=== PATIENT | female | born 1980 | race Caucasian/White ===

== ENCOUNTER 2016-09-11 12:07 | Inpatient (IN) | payer OTHER ==
[2016-09-11 12:55] VITALS: BMI 29.9
[2016-09-11 13:16] LABS: SPECIFIC GRAVITY 1.015 (1.001-1.030); URINE BILIRUBIN NEGATIVE (NEGATIVE); URINE BLOOD 2+ (NEGATIVE); URINE GLUCOSE (UA) NEGATIVE (NEGATIVE); URINE LEUKOCYTE ESTERASE 1+ (NEGATIVE); URINE NITRITE NEGATIVE (NEGATIVE); URINE PROTEIN TRACE (NEGATIVE); URINE UROBILINOGEN NORMAL (0-1 mg/dl)
[2016-09-11 13:17] LABS: URINE APPEARANCE HAZY; URINE COLOR YELLOW
[2016-09-11 13:45] LABS: URINE AMORPHOUS SEDIMENT FEW; URINE BACTERIA FEW
[2016-09-11] MEDS ORDERED: FENTANYL 100 MCG/2 ML VIAL IV PRN (14:13)
[2016-09-11] MEDS ORDERED: IV START KIT ONE (14:16)
[2016-09-11] MEDS ORDERED: LACTATED RINGERS 1,000 ML ONE (14:16)
[2016-09-11] MEDS: LACTATED RINGERS 1,000 ML IV SCH ×4 (14:42→21:24)
[2016-09-11] MEDS ORDERED: ONDANSETRON 4 MG/2ML 2 ML VIAL IV PRN ×2 (14:59→21:05)
[2016-09-11] MEDS: FENTANYL 100 MCG/2 ML VIAL IV PRN ×2 (15:07→17:48)
[2016-09-11 15:10] LABS: ABSOLUTE NEUTROPHIL COUNT 5.9 K/mm3 (1.8-7.7); BASO % 0.1 % (0.2-1.0); EOS % 0.4 % (0.9-2.9); HEMATOCRIT 26.3 % (37.0-47.0); HEMOGLOBIN 8.4 gm/l (12.0-16.0); IMM NEUT # 0.1 K/mm3 (0-0.2); IMM NEUT% 0.9 % (0-1); LYMPH # 1.5 (1.0-4.8); LYMPH % 18.4 % (15-45); MEAN CELL VOLUME 88.9 fl (81.0-99.0); MEAN CORPUSCULAR HEMOGLOBIN 28.4 pg (27.0-31.0); MEAN CORPUSCULAR HGB CONC 31.9 g/dl (33.0-37.0); MEAN PLATELET VOLUME 10.2 fl (7.4-10.4); MONO # 0.5 (0.0-0.8); MONO % 6.5 % (4-12); NEUT % 73.7 % (43-75); PLATELET COUNT 200 K/mm3 (130-400); RED CELL DISTRIBUTION WIDTH 12.9 % (11.5-14.5)
[2016-09-11] MEDS ORDERED: MORPHINE SULFATE 4 MG/ML SYRINGE IV ONE (15:45)
[2016-09-11] MEDS ORDERED: CALCIUM CARBONATE 750 MG TAB.CHEW PO PRN (16:49)
[2016-09-11] MEDS ORDERED: ACETAMINOPHEN 500 MG TABLET PO PRN (16:49)
[2016-09-11] MEDS ORDERED: TAMSULOSIN HCL 0.4 MG CAPSULE.DR PO ONE (17:00)
--- NOTE | 2016-09-11 17:55 | US ---
RENAL ULTRASOUND HISTORY: Increased left flank pain. Left renal calculus. 37 weeks . Sonography was performed of the kidneys and bladder. Evaluation limited due to gravid status. Comparison against prior imaging 08/24/2015. RIGHT RENAL DIMENSIONS: 13.2 x 5.8 x 6.2 cm. LEFT RENAL DIMENSIONS: 14.6 x 7.7 x 5.4 cm. CORTICAL THICKNESS: 1.2 cm on the right, 1.0 cm on the left. RESISTIVE INDICES: 0.68 on the right, 0.65 on the left. FOCAL RENAL LESIONS: No solid or cystic lesions. No shadowing echogenic foci. Previously noted 9 mm calculus not seen. COLLECTING SYSTEM DILATATION: Moderate pelvic caliectasis on the left with moderate proximal ureteral dilatation. BLADDER: Limited evaluation due to empty status. INTRAUTERINE GESTATION: Cardiac activity noted, 131 bpm. IMPRESSION: Moderate left-sided collecting and proximal left ureteral system dilatation with no residual renal calculus, obstructive ureteral calculus is possible. No evidence of right upper urinary tract obstruction. Findings discussed with Dr. Yancey of the referring clinical service on 09/11/2016 at 1751 hours.
[2016-09-11] MEDS ORDERED: MORPHINE SULFATE 4 MG/ML SYRINGE IV PRN (18:00)
--- NOTE | 2016-09-11 18:38 | HP ---
JORDAN GARCIA [id number] DATE OF ADMISSION: 09/11/2016 ADMITTING DIAGNOSIS: 37 weeks not in labor. SECONDARY DIAGNOSIS: Recent onset of kidney stone left ureter. HISTORY OF PRESENT ILLNESS: The patient is a 36-year-old female experiencing her fifth () She is now 37 weeks by good dating. She presents to the [facility] with a history of onset of left flank pain this morning approximately 8:30 fairly sudden onset. She describes it as a pressure sensation that at times is worse than others. She has not noted any kacie blood in her urine. She does have a history of kidney stones. This has actually had a stone basket lau ureteroscopy procedure to remove stones in the past, and also admits to having lithotripsy, and the notation that she has stable stones identified in the calyx of both kidneys. She also underwent a ureteral sling some 2 years ago. has been uncomplicated up to this point. She presents with pain symptoms at this time. She denies fever, or chills. ALLERGIES: SLIGHT SENSITIVITY TO HYDROCODONE WITH A SKIN RASH. MEDICATIONS: Include the routine vitamins. PAST SURGICAL HISTORY: She has had a bladder repair. No other surgeries noted. REVIEW OF SYSTEMS: Complete and unremarkable. FAMILY HISTORY: Noncontributory. LABORATORIES: Drawn on admission include a urinalysis which showed urine was hazy, pH of 7, negative for ketones, and glucose, 2+ for blood, white cells 3 to 5, red cells 5 to 10. Urine bacteria are few and was sent for culture. She denies frequency. White count was normal. PHYSICAL EXAMINATION: GENERAL: Limited physical examination. She appears to be in moderate discomfort. She has already been medicated with several doses of narcotics. VITAL SIGNS: Stable. ABDOMEN: Her right flank is completely unremarkable. Left flank just under the costovertebral rib is an area of tenderness. IMPRESSION: Patient likely has a kidney stone. Whether it is obstructing the ureter is unknown at this time. PLAN: The patient is to be hospitalized, given po Flomax .4mg at this time to help passage of stone. She is undergoing bilateral renal ultrasound to rule out any obstruction, and will be given narcotics for the next few hours for pain relief. If she has full obstruction, or she does not respond to conservative therapy, urology consult will be requested. Addendum: She went into spontaneous labor with a category 1 strip. SROM @ 10:15PM. Now 5.5 cm, cephalic presentation ALEXEY/keely
[2016-09-11] MEDS ORDERED: OXYTOCIN IN LR 500 ML IV ONE (19:10)
[2016-09-11] MEDS ORDERED: PUMP TUBING ONE (19:13)
[2016-09-11] MEDS ORDERED: LIDOCAINE Viscous 2% 15 ML UDCUP ONE (19:13)
[2016-09-11] MEDS ORDERED: OXYTOCIN 10 UNITS/ML VIAL ONE (19:13)
[2016-09-11] MEDS ORDERED: EPIDURAL PUMP SET ONE (19:13)
[2016-09-11] MEDS ORDERED: LIDOCAINE 1% (PRES FREE) 30 ML VIAL ONE (19:13)
[2016-09-11] MEDS ORDERED: MINERAL OIL 25 ML BOT ONE (19:13)
[2016-09-11] MEDS ORDERED: FENTANYL/ROPIVACAINE EPIDURAL 250 ML EP ONE (19:14)
[2016-09-11] MEDS ORDERED: METOCLOPRAMIDE HCL 5 MG/ML 2ML VIAL IV PRN (21:05)
[2016-09-11] MEDS ORDERED: SODIUM CHLORIDE 0.9% 500 ML IV PRN (21:05)
[2016-09-11] MEDS ORDERED: NALOXONE HCL 0.4 MG/ML VIAL IV PRN (21:05)
[2016-09-11] MEDS ORDERED: DIPHENHYDRAMINE HCL 50 MG/1 ML VIAL IV PRN (21:05)
[2016-09-11] MEDS ORDERED: NALBUPHINE HCL 20 MG/ML AMP IV PRN (21:05)
[2016-09-11] MEDS ORDERED: EPHEDRINE SULFATE 50 MG/ML 1ML VIAL IV PRN (21:05)
[2016-09-11] MEDS ORDERED: LACTATED RINGERS 500 ML IV PRN (21:05)
[2016-09-11] MEDS: FENTANYL/ROPIVACAINE EPIDURAL 250 ML EP SCH (21:10)
[2016-09-11] MEDS ORDERED: ROPIVACAINE 0.5% 30 ML VIAL ONE ×2 (21:26→22:16)
[2016-09-11] MEDS ORDERED: EPIDURAL PROCEDURE TRAY ONE (21:26)
[2016-09-12] MEDS ORDERED: OXYTOCIN IN LR 500 ML IV PRN (01:32)
[2016-09-12] MEDS ORDERED: LACTATED RINGERS 1,000 ML IV SCH ×2 (01:45)
--- NOTE | 2016-09-12 02:11 | PDOC36 ---
Provider Note Subject: OB labor note Note: Scant progress noted. SROM but inadeq u/c's. Exam by me 5cm, 70%effaced, vtx at brim with sizeable forebag and unstable cephalic lie. Abd exam strongly suggest polyhydramnios. Bedside scan confirms diagnosis. Low dose pitocin to help engage vertex deeper into pelvis. Situation and risks discussed with pt and FOB.
[2016-09-12] MEDS ORDERED: LACTATED RINGERS 1,000 ML IV PRN (07:49)
[2016-09-12] MEDS ORDERED: DIPHTH,PERTUSS(ACELL),TET VAC 0.5 ML VIAL IM V ONE (07:49)
[2016-09-12] MEDS ORDERED: LANOLIN 50 APPLIC/7G TUBE TP PRN (07:49)
[2016-09-12] MEDS ORDERED: MEASLES,MUMPS&RUBELLA VACCINE 0.5 ML VIAL SUB-Q V ONE (07:49)
[2016-09-12] MEDS ORDERED: BENZOCAINE/MENTHOL 60 APPLIC/BOT TP PRN (07:49)
[2016-09-12] MEDS ORDERED: DOCUSATE SODIUM 100 MG CAPSULE PO PRN (07:49)
--- NOTE | 2016-09-12 08:20 | L&D NOTE ---
JORDAN GARCIA ELAINE [id number] DATE OF DELIVERY: September 12, 2016 PREOPERATIVE DIAGNOSES: 1. at term. 2. Polyhydramnios. 3. Multiparity. 4. Negative Beta strep. 5. Admitted with nephrolithiasis, left kidney stone. POST OPERATIVE DIAGNOSES: 1. at term. 2. Polyhydramnios. 3. Multiparity. 4. Negative Beta strep. 5. Admitted with nephrolithiasis, left kidney stone. 6. Delivery of healthy female . PROCEDURES PERFORMED: 1. Amniotomy for polyhydramnios. 2. Uncomplicated vaginal . 3. Repair of second degree laceration. ESTIMATED BLOOD LOSS: 250 mL. COMPLICATIONS: None. FINDINGS: A second degree spontaneous tear with delivery of a good size female infant. DESCRIPTION OF PROCEDURE: Patient had been admitted the previous evening with left flank pain and was felt to have a nephrolithiasis, medicated with narcotic and Flomax. She was comfortable at that point but thought she was in labor. She was checked and found to be significantly dilated. Epidural was administered in preparation of the onset of the labor which gave her good pain relief from the nephrolithiasis. She was discovered to have polyhydramnios. Bedside scan confirmed that impression. The head was at a fairly high station and so with judicious low dose Pitocin, we were able to get sufficient attachment of the head over the cervix. Amniotomy was done under controlled circumstances yielding copious amounts of clear amniotic fluid. Patient then entered into labor rather rapidly, had one brief run of some variable decelerations but this spontaneously resolved and had a first stage that lasted perhaps four hours at maximum. Second stage lasted approximately 15 minutes and spontaneously delivered the baby from the occiput anterior position. Shoulders were easily delivered. The baby was then brought up onto the maternal abdomen. It had a vigorous cry, had a good tone, color. Cord was allowed to cease pulsating. It was then clamped and cut by the father. Placenta was then spontaneously passed. It was intact and otherwise unremarkable. She had excellent uterine tone with scant vaginal bleeding. She was noted to have a second degree tear which was then closed as an episiotomy with a running lock suture on the anterior aspect and then followed by closure on the skin. The perineum was restored to its normal anatomical appearance at the completion of the repair. She was stable and well post delivery.
[2016-09-12] MEDS ORDERED: PRENATAL VIT/FE FUMARATE/FA 1 TABLET PO SCH (09:00)
[2016-09-12] MEDS: FENTANYL/ROPIVACAINE EPIDURAL 250 ML EP SCH (09:03)
[2016-09-12] MEDS: IBUPROFEN 800 MG TABLET PO PRN ×2 (09:07→17:42)
[2016-09-12] MEDS: OXYCODONE/ACETAMINOPHEN 5/325 MG TABLET PO PRN ×4 (09:27→21:26)
--- NOTE | 2016-09-12 10:28 | PDOC36 ---
Provider Note Subject: Note: Pt admitted with flank pain - u/s did not show any kidney stones however hydronephrosis noted. Pt subsequently went into spontaneous labor and delivered this AM Plan: keep epidural x 12 hours continue narayan catheter increase IV to LR @ 150cc/hr Lasix 20mg PO BID will reassess tomorrow if still symptomatic
[2016-09-12] MEDS: FUROSEMIDE 20 MG TABLET PO SCH ×2 (10:47→22:39)
[2016-09-12] MEDS: LACTATED RINGERS 1,000 ML IV PRN ×2 (10:47→17:14)
[2016-09-12] MEDS: LACTATED RINGERS 1,000 ML IV SCH ×2 (21:19→21:20)
[2016-09-13] MEDS: OXYCODONE/ACETAMINOPHEN 5/325 MG TABLET PO PRN ×3 (01:22→09:30)
[2016-09-13] MEDS: IBUPROFEN 800 MG TABLET PO PRN ×2 (01:23→09:30)
[2016-09-13 06:59] LABS: HEMATOCRIT 20.9 % (37.0-47.0)
[2016-09-13 07:12] LABS: HEMOGLOBIN 6.5 gm/l (12.0-16.0)
[2016-09-13 07:57] VITALS: BP 106/64
--- NOTE | 2016-09-13 07:57 | PDOC44 ---
- Subjective Day: 1 Reports Flatus, Reports Pain Tolerable (pt denies any flank pain at this time), Reports Lochia Light, Reports Other (c/o bilateral lower ext edema. denies feeling fatigue, SOB, or dizziness.), Denies , Denies Nausea, Denies Vomiting, Denies Fever - Objective Temp Pulse Resp BP Pulse Ox 98.2 F 63 16 107/57 09/13/16 01:20 09/13/16 01:20 09/13/16 01:20 09/13/16 01:20 Lab Results 09/13/16 06:00 Hgb 6.5 L* Hct 20.9 L Current Medications Generic Name Dose Route Start Last Admin Trade Name Freq PRN Reason Stop Dose Admin Benzocaine/Menthol 1 applic 09/12/16 07:49 Dermoplast TP PRN PRN Patient Comfort Docusate Sodium 100 mg 09/12/16 07:49 Colace PO DAILY PRN Comfort Emollient Ointment 1 applic 09/12/16 07:49 Aot-T-Qonpek TP PRN PRN sore nipples Furosemide 20 mg 09/12/16 10:30 09/12/16 22:39 Lasix PO 20 mg BID DARWIN Administration Ropivacaine/Fentanyl/NS 250 mls @ 0 mls/hr 09/11/16 21:05 09/12/16 09:03 Fentanyl 2 Mcg/Ml + Ropivacaine 0.125% Ep Bag EP 5 mls/hr EPI DARWIN Administration Protocol Per Protocol Lactated Ringer's 1,000 mls @ 150 mls/hr 09/12/16 10:22 09/12/16 17:14 Lactated Ringers IV 150 mls/hr .Q6H40M PRN Administration Titrate per clinical situation Ibuprofen 800 mg 09/12/16 07:49 09/13/16 01:23 Motrin PO 800 mg Q8H PRN Administration Pain (Mild) Oxycodone/Acetaminophen 1 - 2 tab 09/12/16 07:49 09/13/16 05:34 Percocet 5/325 PO 2 tab Q4H PRN Administration Pain (Moderate) Sodium Chloride 10 ml 09/11/16 17:00 09/12/16 17:54 Normal Saline 10ml Flush IV Not Given Q8HR DARWIN Sodium Chloride 10 ml 09/12/16 07:49 Normal Saline 10ml Flush IV PRN PRN IV Flush - Physical Exam General: Afebrile, No Acute Distress Cardiovascular: Regular Rate and Rhythm Fundus: Firm, Below Umbilicus Abdomen: Normal Bowel Sounds, No Tenderness, No Distention Extremities: Edema (2+ bilaterally), No Tenderness Disposition: Stable, Anticipate DC to Home (Pt desires discharge today. Hgb is 6.5 <-- 8.4. Discussed with pt. As pt is asymptomatic, would not transfuse at this time. Start iron. Also recommend pt to have decreased activity and lots of rest at home. Rx percocet and motrin as well. Rx lasix.)
[2016-09-13] MEDS: FUROSEMIDE 20 MG TABLET PO SCH (08:08)
== END 2016-09-13 11:09 | disposition home or self-care (01) | DRG 775 ==
LOC: FBCOUT 12:07 → FBC 12:07 → OBSVTOIN 14:00 → FBC 14:00 → FBCOUT 14:00
PROVIDERS: ADMIT Obstetrics & Gynecology; ATTEND Obstetrics & Gynecology
PROC: 10907ZC Drainage of Amniotic Fluid, Therapeutic from Products of Conception, Via Natural or Artificial Opening (ICD-10-PCS; 2016-09-11)
PROC: 10E0XZZ Delivery of Products of Conception, External Approach (ICD-10-PCS; principal; 2016-09-12)
PROC: 0KQM0ZZ Repair Perineum Muscle, Open Approach (ICD-10-PCS; 2016-09-12)
DX: O26.833 Pregnancy related renal disease, third trimester (principal); N20.0 Calculus of kidney; O40.3XX0 Polyhydramnios, third trimester, not applicable or unspecified; O70.1 Second degree perineal laceration during delivery; Z3A.37 37 weeks gestation of pregnancy; Z37.0 Single live birth; O09.43 Supervision of pregnancy with grand multiparity, third trimester

== ENCOUNTER 2016-12-02 13:11 | Emergency (ER) | payer OTHER ==
[2016-12-02] MEDS ORDERED: IOPAMIDOL 370 (76%) 100 ML VIAL IV ONE (13:12)
[2016-12-02] MEDS ORDERED: LACTATED RINGERS 1,000 ML ONE (13:57)
[2016-12-02 14:02] LABS: URINE BILIRUBIN NEGATIVE (NEGATIVE); URINE BLOOD NEGATIVE (NEGATIVE); URINE GLUCOSE (UA) NEGATIVE (NEGATIVE); URINE LEUKOCYTE ESTERASE TRACE (NEGATIVE); URINE NITRITE NEGATIVE (NEGATIVE); URINE PROTEIN NEGATIVE (NEGATIVE); URINE UROBILINOGEN NORMAL (0-1 mg/dl)
[2016-12-02 14:04] LABS: ABSOLUTE NEUTROPHIL COUNT 2.6 K/mm3 (1.8-7.7); BASO % 0.2 % (0.2-1.0); EOS # 0.1 (0.0-0.5); EOS % 1.1 % (0.9-2.9); HEMATOCRIT 35.9 % (37.0-47.0); HEMOGLOBIN 11.8 gm/l (12.0-16.0); IMM NEUT% 0.2 % (0-1); LYMPH # 1.7 (1.0-4.8); LYMPH % 36.4 % (15-45); MEAN CELL VOLUME 90.4 fl (81.0-99.0); MEAN CORPUSCULAR HEMOGLOBIN 29.7 pg (27.0-31.0); MEAN CORPUSCULAR HGB CONC 32.9 g/dl (33.0-37.0); MEAN PLATELET VOLUME 9.4 fl (7.4-10.4); MONO # 0.4 (0.0-0.8); MONO % 7.9 % (4-12); NEUT % 54.2 % (43-75); PLATELET COUNT 253 K/mm3 (130-400); RED CELL DISTRIBUTION WIDTH 14.2 % (11.5-14.5); URINE APPEARANCE CLOUDY; URINE COLOR YELLOW
[2016-12-02 14:19] LABS: ALB/GLOB RATIO 1.5 (>1.0); ALBUMIN 4.3 gm/dL (3.5-5.7); CALCIUM 9.3 mg/dL (8.6-10.3)
[2016-12-02 14:26] LABS: URINE AMORPHOUS SEDIMENT 2+; URINE BACTERIA 1+; URINE RBC RARE /hpf
--- NOTE | 2016-12-02 14:36 | CT ---
EXAMINATION: Contrast enhanced CT scan of the abdomen and pelvis. CLINICAL INDICATION: Right lower quadrant pain for one week. Increasing in severity past 24 hours. COMPARISON: 10/28/2016. TECHNIQUE: Oral contrast: None Following uneventful administration of 100 mL of Isovue 370, intravenously axial images were acquired from just above the domes of the diaphragm to the iliac crest. A CT scan of the pelvis was also obtained from the iliac crest to the initial tuberosities. Stacked axial, sagittal, and coronal images were reviewed. Findings: Abdomen CT: (Contrast-enhanced): The lung bases are clear and are without mass or pleural effusion. The liver is unremarkable. The gallbladder is within normal limits. There is no evidence of biliary obstruction. The spleen size and attenuation are within normal limits. The pancreas is normal in size and contours. No inflammatory stranding is identified. The pancreatic duct is unremarkable. The adrenals are unremarkable. Kidneys are without hydronephrosis or perinephric stranding. Cortical 1 cm calculus in the interpolar distribution of the left kidney appears very similar to the prior CT scan. 7 mm nonobstructing calculus lower pole right kidney is also unchanged. The abdominal aorta unremarkable. There is no retroperitoneal adenopathy identified. There is moderate stool in distribution of the colon. No dilated loops of small bowel are identified. There is no free fluid. The osseous structures exhibit no displaced fracture. No lytic or blastic lesions are identified. Pelvic CT: (Contrast -enhanced): The distal ureters and bladder are unremarkable. The uterus is anteverted. Small amount of fluid is noted within the endometrial canal. There is a 1.6 cm left adnexal cyst. No gross right adnexal lesion is identified. No adenopathy is identified. The distal abdominal aorta and iliac vessels are within normal limits. Fluid-filled loops of small bowel are noted. No distention is identified. The appendix is unremarkable. No displaced fractures are identified. There are no gross osteolytic or blastic lesions. The overlying soft tissues are unremarkable. IMPRESSION: 1. Moderate stool in distribution of the colon with fluid-filled loops of small bowel. Findings may reflect sequela of constipation. Enteritis may give a similar appearance. No gross inflammatory stranding or significant free fluid is seen. 2. 1.6 cm left adnexal cyst. 3. Bilateral nephrolithiasis-nonobstructive. The findings were uploaded to the electronic medical record for review at approximately 2:37 PM 12/02/2016
== END 2016-12-02 15:26 | disposition home or self-care (01) ==
LOC: ED 13:11
DX: R10.31 Right lower quadrant pain (principal); Z87.442 Personal history of urinary calculi
CPT/HCPCS: 83690; 84703; 85025; 80053; 81001; 74177; 99284 ×2; 96360; J7120; Q9967